=== PATIENT | male | born 1985 | race Caucasian/White ===

== ENCOUNTER 2019-01-12 08:24 | Emergency (ER) | payer OTHER ==
[2019-01-12] MEDS ORDERED: ONDANSETRON 4 MG/2 ML VIAL IVP ONE (08:55)
[2019-01-12] MEDS ORDERED: HYDROmorphONE/DILAUDID 2 MG/ML INJ IVP ONE (08:55)
[2019-01-12] MEDS ORDERED: NS 1,000 ML IV ONE (08:55)
--- NOTE | 2019-01-12 08:57 | EDPHY ---
H & P Stated Complaint: Back injury while at work Source: Patient Exam Limitations: No limitations - Personal History Current Tetanus Diphtheria and Acellular Pertussis (TDAP): Yes - Medical/Surgical History Hx Asthma: No Hx Chronic Respiratory Disease: No Hx Diabetes: No Hx Cardiac Disease: No Hx Renal Disease: No Hx Cirrhosis: No Hx Alcoholism: No Hx HIV/AIDS: No Hx Splenectomy or Spleen Trauma: No Other PMH: Denies - Social History Smoking Status: Never smoked Time Seen by Provider: 01/12/19 08:53 HPI/ROS: HPI: This is a 33-year-old male who presents with Chief Complaint: Right abdomen and lower chest injury Location: Right abdomen and right lower chest Quality: Injury, sharp, constant pain Duration: Around 7:30 a.m. Approximately 1 and 0.5 hr prior to arrival Signs and Symptoms: No bleeding, no radiation, no numbness, no weakness, no tingling, no incontinence, + decreased range of motion, no swelling,+ pain, no fever Timing: Acute Severity: 9/10 Context: Patient was at work when he jumped up onto the back of a trailer and slipped landing directly on his right flank and right lower lateral chest. He reports that he sustained an abrasion and has constant, sharp, 9/10 pain. He reports he is unable to take a deep breath as the pain is very severe and actually worsens. He has no nausea and no vomiting. Denies LOC/head injury/ neck pain/dizziness/nausea/vomiting/amnesia/back pain. Change in bowel or bladder habits. Does not take any blood thinners. Reports tetanus is current. Modifying Factors: None Comment: ROS: A comprehensive 10 system review of systems is otherwise negative aside from elements mentioned in the history of present illness. MEDICAL/SURGICAL/SOCIAL HISTORY: Medical history: Generally healthy. Does not take any regular medications. Surgical history: Denies Social history: Never smoked. Denies drug use. Employed. CONSTITUTIONAL: Appears uncomfortable, adult physically fit white male, awake and alert HEENT: Atraumatic and normocephalic, PERRL, EOMI. no globe entrapment, no raccoon eyes. no [place] signs.Tympanic membranes clear. No tympanic membrane rupture. Nares patent; no septal hematoma. Oropharynx clear, no exudate and moist pink mucosa. No malocclusion. no dental trauma. Airway patent. No lymphadenopathy. NECK: supple, no midline tenderness, flexion 45 degrees, extension 45 degrees, right and left lateral flexion 45 degrees. No meningismus. Cardiovascular: Normal S1/S2, regular rate, regular rhythm, without murmur rub or gallop. PULMONARY/CHEST: Symmetrical and moderate right lateral and right lower rib reproducible tenderness. no crepitus. Clear to auscultation bilaterally. Fair air movement. No accessory muscle usage. Shallow breathing pattern noted. ABDOMEN: Soft, nondistended, moderate right flank tenderness, no ecchymosis, no rebound, + guarding, no peritoneal signs, no masses or organomegaly. No CVAT. PELVIC: no pain with rocking; bilateral hips flexion 125 degrees, extension 30 degrees, with no pain internal rotation and no pain external rotation. BACK: No midline tenderness, no paraspinous spasm, deep tendon reflexes 2/2, no pain with straight leg raise EXTREMITIES: 2/2 pulses, no deformities, no clubbing, no cyanosis or edema. NEUROLOGICAL: no focal neuro deficits. GCS 15. SKIN: Warm and dry, 6 in x 8 in abrasion over the right flank and lower chest- no active bleeding. no erythema. no rash. Good capillary refill. (Jessica Covington) Constitutional: Initial Vital Signs Temperature (C) 36.6 C 01/12/19 08:25 Heart Rate 57 L 01/12/19 08:25 Respiratory Rate 16 01/12/19 08:25 Blood Pressure 121/80 H 01/12/19 08:25 O2 Sat (%) 100 01/12/19 08:25 O2 Delivery Mode Room Air Allergies/Adverse Reactions: No Known Allergies Allergy (Unverified 01/12/19 08:28) Home Medications: Medication Instructions Recorded Cyclobenzaprine [Flexeril 10 MG 10 mg PO TID PRN #15 tab 01/12/19 (*)] Medical Decision Making - Diagnostics Imaging Results: Imaging Impressions Abdomen CT 01/12/19 08:56 Impression: Normal CT scan of the abdomen and pelvis. Findings and recommendations discussed with Jessica Covington at 10:00 am on 01/12/2019. Final report concurs with initial preliminary interpretation. Chest CT 01/12/19 08:56 Impression: No acute trauma. Findings and recommendations discussed with Jessica Covington at 10:00 AM hour, 2018. Final report concurs with initial preliminary interpretation. ED Course/Re-evaluation: I did not see this patient while he was in the emergency department. However his care was discussed with the PA while the patient was in the department. I agree with treatment plan and management (Umair Morales) Signs reviewed and are stable. Placed on food truck caterer. Fall was mechanical in nature. Tetanus is up-to-date. IV access, i-STAT labs, urinalysis, CT abdomen and pelvis, CT chest with contrast ordered per Trauma protocol Given 1 L normal saline, IV Dilaudid and IV Zofran 0920: Notified by tech that i-STAT is H&H 16.3/48, sodium 141, potassium 3.7, creatinine 1.0, glucose 143 0934: Urinalysis is negative for hematuria, no signs of infection. 1009: Called by radiologist, Dr. Watts, who reports CT chest shows no pneumothorax, no hemothorax, no rib fractures, no pneumonia. CT abdomen and pelvis scan shows no intra-abdominal pathology/hemorrhage. Patient appears to have rib contusion and right flank contusion along with right abdominal wall abrasion. Advised supportive care and given prescription for Flexeril. No signs of neurovascular compromise/tenting of skin/compartment syndrome/ extremities and joints examined above and below area of concern and are neurovascularly intact. This patient was seen under the supervision of my secondary supervising physician. I evaluated and cared for this patient with attending. (Jessica Covington) Differential Diagnosis: Differential diagnosis includes but is not limited to rib contusion, rib fracture, pneumothorax, intra-abdominal hemorrhage, intra-abdominal laceration, abrasion, contusion. (Jessica Covington) - Data Points Laboratory Results: Laboratory Results 01/12/19 09:15 01/12/19 09:15 01/12/19 01/12/19 01/12/19 09:15 09:15 09:15 WBC RBC Hgb POC Hgb Hct POC Hct MCV MCH MCHC RDW Plt Count MPV Neut % (Auto) Lymph % (Auto) [place] % (Auto) Eos % (Auto) Baso % (Auto) Nucleat RBC Rel Count Absolute Neuts (auto) Absolute Lymphs (auto) Absolute Monos (auto) Absolute Eos (auto) Absolute Basos (auto) Absolute Nucleated RBC Immature Gran % Immature Gran # PT 12.5 SEC SEC (12.0-15.0) INR 0.97 (0.83-1.16) APTT 24.1 SEC SEC (23.0-38.0) POC Sodium Sodium 138 mEq/L mEq/L (135-145) POC Potassium Potassium 3.8 mEq/L mEq/L (3.5-5.2) POC Chloride Chloride 100 mEq/L mEq/L (97-110) Carbon Dioxide 28 mEq/l mEq/l (22-31) POC Total CO2 Anion Gap 10 mEq/L mEq/L (6-14) POC BUN BUN 18 mg/dL mg/dL (7-23) Creatinine 0.9 mg/dL mg/dL (0.7-1.3) POC Creatinine Estimated GFR > 60 Glucose 133 mg/dL H mg/dL (70-100) POC Glucose Calcium 9.4 mg/dL mg/dL (8.5-10.4) Urine Color YELLOW Urine Appearance MODERATELY TURBID Urine pH 9.0 H (5.0-7.5) Ur Specific [place] 1.009 (1.002-1.030) Urine Protein NEGATIVE (NEGATIVE) Urine Ketones NEGATIVE (NEGATIVE) Urine Blood NEGATIVE (NEGATIVE) Urine Nitrate NEGATIVE (NEGATIVE) Urine Bilirubin NEGATIVE (NEGATIVE) Urine Urobilinogen NEGATIVE EU EU (0.2-1.0) Ur Leukocyte Esterase NEGATIVE (NEGATIVE) Urine Glucose NEGATIVE (NEGATIVE) 01/12/19 01/12/19 09:15 09:06 WBC 5.95 10^3/uL 10^3/uL (3.80-9.50) RBC 5.13 10^6/uL 10^6/uL (4.40-6.38) Hgb 15.8 g/dL g/dL (13.7-17.5) POC Hgb 16.3 gm/dL gm/dL (13.7-17.5) Hct 46.3 % % (40.0-51.0) POC Hct 48 % % (40-51) MCV 90.3 fL fL (81.5-99.8) MCH 30.8 pg pg (27.9-34.1) MCHC 34.1 g/dL g/dL (32.4-36.7) RDW 12.5 % % (11.5-15.2) Plt Count 296 10^3/uL 10^3/uL (150-400) MPV 9.1 fL fL (8.7-11.7) Neut % (Auto) 58.7 % % (39.3-74.2) Lymph % (Auto) 28.6 % % (15.0-45.0) [place] % (Auto) 9.9 % % (4.5-13.0) Eos % (Auto) 1.5 % % (0.6-7.6) Baso % (Auto) 1.0 % % (0.3-1.7) Nucleat RBC Rel Count 0.0 % % (0.0-0.2) Absolute Neuts (auto) 3.49 10^3/uL 10^3/uL (1.70-6.50) Absolute Lymphs (auto) 1.70 10^3/uL 10^3/uL (1.00-3.00) Absolute Monos (auto) 0.59 10^3/uL 10^3/uL (0.30-0.80) Absolute Eos (auto) 0.09 10^3/uL 10^3/uL (0.03-0.40) Absolute Basos (auto) 0.06 10^3/uL 10^3/uL (0.02-0.10) Absolute Nucleated RBC 0.00 10^3/uL 10^3/uL (0-0.01) Immature Gran % 0.3 % % (0.0-1.1) Immature Gran # 0.02 10^3/uL 10^3/uL (0.00-0.10) PT INR APTT POC Sodium 141 mEq/L mEq/L (135-145) Sodium POC Potassium 3.7 mEq/L mEq/L (3.3-5.0) Potassium POC Chloride 100 mEq/L mEq/L (97-110) Chloride Carbon Dioxide POC Total CO2 30 mEq/L mEq/L (22-31) Anion Gap POC BUN 16 mg/dL mg/dL (7-23) BUN Creatinine POC Creatinine 1.0 mg/dL mg/dL (0.7-1.3) Estimated GFR Glucose POC Glucose 143 mg/dL H mg/dL (70-100) Calcium Urine Color Urine Appearance Urine pH Ur Specific [place] Urine Protein Urine Ketones Urine Blood Urine Nitrate Urine Bilirubin Urine Urobilinogen Ur Leukocyte Esterase Urine Glucose Medications Given: Discontinued Medications Hydromorphone HCl (Dilaudid) 1 mg IVP EDNOW ONE Stop: 01/12/19 08:56 Last Admin: 01/12/19 09:25 Dose: 1 mg Sodium Chloride (Ns) 1,000 mls @ 0 mls/hr IV ONCE ONE; Wide Open PRN Reason: Protocol Stop: 01/12/19 08:56 Last Admin: 01/12/19 09:25 Dose: 1,000 mls Ondansetron HCl (Zofran) 4 mg IVP EDNOW ONE Stop: 01/12/19 08:56 Last Admin: 01/12/19 09:29 Dose: 4 mg Point of Care Test Results: Chemistry 01/12/19 09:06 POC Sodium 141 mEq/L mEq/L (135-145) POC Potassium 3.7 mEq/L mEq/L (3.3-5.0) POC Chloride 100 mEq/L mEq/L (97-110) POC Total CO2 30 mEq/L mEq/L (22-31) POC BUN 16 mg/dL mg/dL (7-23) POC Creatinine 1.0 mg/dL mg/dL (0.7-1.3) POC Glucose 143 mg/dL H mg/dL (70-100) ISTAT H&H 01/12/19 09:06 POC Hgb 16.3 gm/dL gm/dL (13.7-17.5) POC Hct 48 % % (40-51) Departure - Departure Disposition: Home, Routine, Self-Care Clinical Impression: Contusion of abdominal wall, initial encounter, Abrasion of abdominal wall, initial encounter Fall, accidental Qualifiers: Encounter type: initial encounter Qualified Code(s): W19.XXXA - Unspecified fall, initial encounter Contusion of rib on right side Qualifiers: Encounter type: initial encounter Qualified Code(s): S20.211A - Contusion of right front wall of thorax, initial encounter Condition: Good Instructions: Contusion in Adults (ED), Abrasion (ED), Fall Prevention (ED), Rib Contusion (ED) Additional Instructions: Take Tylenol 650 mg every 4 hours and/or Ibuprofen 600 mg every 8 hours with food as needed for pain. Use Flexeril every 8 hours as needed for muscle spasm. Apply moist heat for 30 minutes at a time; 2-3 times per day for the next 1-2 days. Work Related Injury: Date of Injury (if different from Date of Service): 01/12/2019 Your work restrictions, if any, last only until the next business day. Formal evaluation for work restrictions beyond one day must be arranged through your employer's workman's compensation provider. Restrictions are noted below: Return to work on your next scheduled shift. Referrals: [facility],. [Clinic] - As per Instructions Stand Alone Forms: Work Excuse Prescriptions: Cyclobenzaprine [Flexeril 10 MG (*)] 10 mg PO TID PRN #15 tab PRN Reason: Spasms
[2019-01-12] MEDS ORDERED: IOPAMIDOL (ISOVUE-300) 100 ML BTL ONE (09:17)
[2019-01-12] MEDS ORDERED: ONDANSETRON 4 MG/2 ML VIAL ONE (09:29)
[2019-01-12 09:34] LABS: PLATELET COUNT 296 10^3/uL (150-400)
[2019-01-12 10:03] LABS: INR 0.97 (0.83-1.16); PROTIME(PATIENT) 12.5 SEC (12.0-15.0)
[2019-01-12 10:09] VITALS: BP 119/72
== END 2019-01-12 10:26 | disposition home or self-care (01) ==
DX: S20.211A Contusion of right front wall of thorax, initial encounter (principal); W18.09XA Striking against other object with subsequent fall, initial encounter; Y99.0 Civilian activity done for income or pay; E86.9 Volume depletion, unspecified
CPT/HCPCS: 82435-PO; 82565-PO; 82947-PO; 84132-PO; 84295-PO; 84520-PO; 85014-ER; 96374; J1170; J2405; Q9967